=== PATIENT | female | born 1980 ===

== ENCOUNTER 2017-07-17 09:55 | Day surgery (SDC) | payer MEDICAID ==
[~2017-07-17] VITALS: Ht 167.6 cm; Wt 74.8 kg
[2017-07-17] VITALS (8 sets, daily range): BP systolic 108–116; BP diastolic 71–81
[~2017-07-17 09:55] MED LIST: NKM
--- NOTE | 2017-07-17 10:13 | Short Stay Surgery H&P ---
History of Present Illness History of Present Illness Chief Complaint colon cancer GERD HPI Norberto Thompson is a 37 year old female who was admitted on for Colon Cancer Patient History Allergies: Coded Allergies: NO KNOWN ALLERGIES (Verified Allergy, Unknown, 07/18/16) PAST MEDICAL HISTORY: Past Surgeries: Social History: Medication History Scheduled No Known Medications* (NKM - No Known Medications*), 0 ., (Reported) Plan Attestation Are the patient's medical conditions optimized for surgery? LAURA CHACON Jul 17, 2017 10:13
--- NOTE | 2017-07-17 10:13 | Pre-Procedure Note/Attestation ---
Pre-Procedure Note/Attestation Complete Prior to Procedure Planned Procedure: not applicable Procedure Narrative: esophagogastroduodenoscopy and colonoscopy Indications for Procedure Pre-Operative Diagnosis: screening colon, GERD Attestation I attest that I discussed the nature of the procedure; its benefits; risks and complications; and alternatives (and the risks and benefits of such alternatives ), prior to the procedure, with the patient (or the patient's legal artists' booking representative). I attest that, if there was a reasonable possibility of needing a blood transfusion, the patient (or the patient's legal artists' booking representative) was given the [facility] [place] [facility] standardized written summary, pursuant to the [place] Blood Safety Act ([place] Health and Safety Code # 1645, as amended). I attest that I re-evaluated the patient just prior to the surgery and that there has been no change in the patient's H&P, except as documented below: LAURA CHACON Jul 17, 2017 10:13
--- NOTE | 2017-07-17 10:15 | Short Stay Surgery H&P ---
History of Present Illness History of Present Illness Chief Complaint colon cancer HPI Norberto Thompson is a 37 year old female who was admitted on for Colon Cancer Patient History Allergies: Coded Allergies: NO KNOWN ALLERGIES (Verified Allergy, Unknown, 07/18/16) PAST MEDICAL HISTORY: (1) Anemia (2) Colon cancer Past Surgeries: Social History: Medication History Scheduled No Known Medications* (NKM - No Known Medications*), 0 ., (Reported) Review of Systems Cardiovascular: Reports: no symptoms Respiratory: Reports: no symptoms Skeletal: Reports: no symptoms Gastrointestinal: Reports: no symptoms Genitourinary: Reports: no symptoms Neurologic: Reports: no symptoms Endocrine: Reports: no symptoms Hematologic: Reports: no symptoms Physical Exam Skin: normal HENT: normal Heart: normal Lungs: normal Abdomen: normal Extremities: normal Plan Plan of Care esophagogastroduodenoscopy and colonoscopy Final Diagnosis: Attestation Are the patient's medical conditions optimized for surgery? Attestation Response: yes LAURA CHACON Jul 17, 2017 10:15
[2017-07-17] MEDS ORDERED: LR 1000ml 1,000 ML IVLG SCH (10:53)
--- NOTE | 2017-07-17 10:53 | Anethesia Preoperative Eval ---
Anesthesia Pre-op PMH/ROS General Date of Evaluation: Jul 17, 2017 Time of Evaluation: 10:58 ASA Score: ASA 1 Mallampati Score Class I : Soft palate, uvula, fauces, pillars visible Class II: Soft palate, uvula, fauces visible Class III: Soft palate, base of uvula visible Class IV: Only hard plate visible Mallampati Classification: Class II Surgeon: Abiola Diagnosis: Abd Pain Surgical Procedure: EGD/Colonoscopy Anesthesia History: none Family History: no anesthesia problems Allergies: Coded Allergies: IODINE AND IODIDE CONTAINING PRODUC (Verified Allergy, Intermediate, rash , 07/17/17) Uncoded Allergies: fulfox (Allergy, Intermediate, rash, 07/17/17) Medications: see eMAR Past Medical History Gastrointestinal/Genitourinary: Reports: other - Colon CA Hematology/Immune: Reports: other - Colon CA PSxH Narrative: Hemicolectomy, Chemo, C/S, Abdominoplasty Anesthesia Pre-op Phys. Exam Physician Exam Last Vital Signs Date Time Temp Pulse Resp B/P (MAP) Pulse Ox O2 Delivery O2 Flow Rate FiO2 07/17/17 10:29 98.7 77 18 113/71 97 Room Air Constitutional: NAD Neurologic: CN 2-12 intact Cardiovascular: RRR Respiratory: CTA Gastrointestinal: S/NT/ND Airway Exam Mallampati Score: Class II MO: limited ROM: limited Teeth: intact Anesthesia Pre-op A/P Labs Urine Test Test 07/17/17 10:05 Urine HCG, Qualitative Negative Risk Assessment & Plan Assessment: ASA 2 Plan: GA Status Change Before Surgery: No Abhishek Culver MD Jul 17, 2017 10:53
--- NOTE | 2017-07-17 10:54 | Immediate Post-Op Evaluation ---
Immediate Post-Op Evalulation Immediate Post-Op Evalulation Procedure: EGD/Colonoscopy Date of Evaluation: Jul 17, 2017 Time of Evaluation: 11:47 IV Fluids: 200 LR Blood Products: 0 Estimated Blood Loss: 1 Urinary Output: 0 Blood Pressure Systolic: 127 Blood Pressure Diastolic: 67 Pulse Rate: 68 Respiratory Rate: 16 O2 Sat by Pulse Oximetry: 100 Temperature (Fahrenheit): 97.8 Pain Score (1-10): 1 Nausea: No Vomiting: No Complications 0 Patient Status: awake, reacts, patent, none Hydration Status: adequate Abhishek Culver MD Jul 17, 2017 10:54
--- NOTE | 2017-07-17 10:55 | 48 Hour Post Anesthesia Eval ---
Post Anesthesia Evaluation Procedure: EGD/Colonoscopy Date of Evaluation: Jul 17, 2017 Time of Evaluation: 13:58 Blood Pressure Systolic: 121 0: 72 Pulse Rate: 74 Respiratory Rate: 18 Temperature (Fahrenheit): 98.2 O2 Sat by Pulse Oximetry: 100 Airway: patent Nausea: No Vomiting: No Pain Intensity: 1 Hydration Status: adequate Cardiopulmonary Status: Stable Mental Status/LOC: patient returned to baseline Follow-up Care/Observations: 0 Post-Anesthesia Complications: 0 Follow-up care needed: ready to discharge Abhishek Culver MD Jul 17, 2017 10:55
[2017-07-17] MEDS ORDERED: Ketamine 500mg Inj ONE (11:00)
[2017-07-17] MEDS ORDERED: fentaNYL 100 mcg/2 mL IV PRN (11:00)
[2017-07-17] MEDS ORDERED: Midazolam 2mg/2ml Inj ONE (11:00)
[2017-07-17] MEDS ORDERED: Propofol 200mg/20ml IV ONE (11:00)
[2017-07-17] MEDS ORDERED: oxyCODONE HCL/Acetaminophen 5/325mg ORAL PRN (11:00)
[2017-07-17] MEDS ORDERED: Alfentanil 2ml Inj ONE (11:00)
[2017-07-17] MEDS ORDERED: LR 1000ml ONE (11:00)
[2017-07-17] MEDS ORDERED: Norco 7.5mg/325mg tab ORAL PRN (11:00)
[2017-07-17] MEDS ORDERED: LORazepam Inj 2mg/ml 1ml IV PRN (11:00)
[2017-07-17] MEDS ORDERED: DiphenhydrAMINE 50mg/ml Inj IVP PRN (11:00)
[2017-07-17] MEDS ORDERED: Atropine Inj 1mg/10ml Syr IV PRN (11:00)
[2017-07-17] MEDS ORDERED: Hydromorphone 0.5mg/0.5ml inj IVP PRN (11:00)
[2017-07-17] MEDS ORDERED: Midazolam 2mg/2ml Inj IVP PRN (11:00)
[2017-07-17] MEDS ORDERED: Norco 5mg/325mg tab ORAL PRN (11:00)
[2017-07-17] MEDS ORDERED: Lidocaine 1% MPF 10mg/ml 5ml ONE (11:00)
[2017-07-17] MEDS ORDERED: Metoclopramide 10mg/2ml Inj IVP PRN (11:00)
[2017-07-17] MEDS ORDERED: Ketorolac 60mg Inj IV PRN (11:00)
[2017-07-17] MEDS ORDERED: Meperidine 25mg/0.5ml Inj (FOR RIGORS ONLY) IV PRN (11:00)
[2017-07-17] MEDS ORDERED: Ketorolac 30mg Inj IV PRN (11:00)
--- NOTE | 2017-07-17 11:27 | Endoscopy Procedure Note ---
Endoscopy Procedure Note Indication for Procedure: colon cancer, GERD Procedures Performed: EGD, colonoscopy Operative Findings/Diagnosis: one polyp, gastritis Specimen: yes Pt Tolerated Procedure Well: Yes Estimated Blood Loss: none Anesthesiologist: cj Anesthesia: MAC Implant(s) used?: No 50 yrs or older w/o bx or poly: No 10yrs. F/U not recommended: Yes If not recommended, why?: Above average risk 10 yrs. F/U needed: Yes 18 years or older w/prev. colo: Yes <3yrs. since last colonoscopy: Yes Med reason:<3 yrs.: cancer LAURA CHACON Jul 17, 2017 11:27
--- NOTE | 2017-07-17 22:30 | Procedure Note ---
DATE OF PROCEDURE: 07/17/2017 PROCEDURE: Upper endoscopy biopsy and colonoscopy with snare polypectomy. ANESTHESIOLOGIST: Abhishek Culver M.D. INSTRUMENT: Olympus adult flexible upper endoscope and colonoscope. INDICATION: 1. Followup on colon cancer. 2. Chronic GERD. REASON FOR PROCEDURE: The procedure, risks, benefits, and possible consequences, including hemorrhage, aspiration, perforation and infection, and alternative treatments, were explained to the patient/legal guardian by Dr. Matt Jason and the patient/legal guardian understood and accepted these risks. PROCEDURE: After informed consent was obtained and the patient was adequately sedated, Olympus upper endoscope was advanced from mouth into the second portion of the duodenum and retroflexion was performed in stomach. The patient had evidence of diffuse gastritis. Random biopsy from antrum was obtained to rule out H. pylori infection. At this time, the upper endoscope was retrieved and the patient was turned over for colonoscopy. First, a rectal exam was performed, which was positive for internal hemorrhoid. Then, the scope was advanced from the rectum to the anastomosis. Quality of prep was fair. Area of anastomosis was covered with solid stools so this examination of that area was limited. The patient had one polyp measured roughly about 6 mm in the sigmoid colon, removed with the snare polypectomy technique. The rest of the exam grossly within normal limit. Retroflexion of rectum showed evidence of internal hemorrhoids. FINDINGS: 1. Gastritis, status post biopsy. 2. Fair colonic prep. 3. One colonic polyp removed, see above for details. 4. Internal hemorrhoids. RECOMMENDATIONS: 1. Followup biopsy results and treat accordingly. 2. We will recommend repeat colonoscopy in one year. I want to thank, Dr. Eran Feliciano for this kind referral. Matt Jason M.D. DR: Shraddha JOB#: [id number] CC: Eran Feliciano M.D.; Fax#: [phone]
== END 2017-07-17 12:55 | disposition home or self-care (01) ==
LOC: GAS 09:55
DX: D12.5 Benign neoplasm of sigmoid colon (principal); K21.9 Gastro-esophageal reflux disease without esophagitis; K64.8 Other hemorrhoids; K29.50 Unspecified chronic gastritis without bleeding; Z90.49 Acquired absence of other specified parts of digestive tract; D64.9 Anemia, unspecified; Z85.038 Personal history of other malignant neoplasm of large intestine
CPT/HCPCS: 43239; 45385; 81025; J2250; J2704; J3490; J7120; Z7512; 94003; 94150